=== PATIENT | male | born 1990 | race Two or more races ===

== ENCOUNTER 2016-06-14 21:14 | Emergency (ER) | payer MEDICAID, OTHER ==
[~2016-06-14] VITALS: Ht 175.3 cm; Wt 85.7 kg
[~2016-06-14 21:14] MED LIST: NO MEDS
[2016-06-14 21:24] VITALS: BP 143/72
--- NOTE | 2016-06-14 22:02 | NUR ---
[employer]ASAN[employer] MEMBER AT BEDSIDE FOR EVAL
[2016-06-14] MEDS ORDERED: BACI/NEOM/POLY B OINT PKT 1 UDPKT PACKET ONE (22:09)
== END 2016-06-14 22:14 | disposition home or self-care (01) ==
LOC: ER 21:18
DX: S01.112D Laceration without foreign body of left eyelid and periocular area, subsequent encounter (principal); F17.200 Nicotine dependence, unspecified, uncomplicated
CPT/HCPCS: A4606; Z7502; Z7610